=== PATIENT | female | born 1955 | race Caucasian/White ===

== ENCOUNTER 2020-03-13 05:29 | Emergency (ER) | payer MEDICARE, OTHER ==
[2020-03-13 05:45] VITALS: BP_SYST 163; BP_SYST 164; BP_SYST 165; BP_DIAS 79; BP_DIAS 87; BP_DIAS 90
[2020-03-13] MEDS ORDERED: MECLIZINE 25 MG (ANTIVERT) TAB PO STA (05:48)
[2020-03-13] MEDS ORDERED: ONDANSETRON 4 MG/2 ML (SDV) Z0FRAN IVP STA ×2 (05:48→06:38)
[2020-03-13] MEDS ORDERED: NS IV 1000 ML 1,000 ML IV STA (05:48)
[2020-03-13 05:50] LABS: BASOPHILS % (AUTO) 0 % (0-10); EOSINOPHILS % (AUTO) 0 % (0-10); HEMATOCRIT 39 % (35-52); LYMPHOCYTES # (AUTO) 1.5 X 10^3 (1.0-4.0); LYMPHOCYTES % (AUTO) 18 % (12-44); MEAN CORPUSCULAR HEMOGLOBIN 30 PG (25-34); MEAN CORPUSCULAR HGB CONC 33 G/DL (32-36); MEAN CORPUSCULAR VOLUME 90 FL (80-99); MEAN PLATELET VOLUME 10.4 FL (7.4-10.4); MONOCYTES # (AUTO) 0.3 X 10^3 (0.0-1.0); MONOCYTES % (AUTO) 3 % (0-12); NEUTROPHILS # (AUTO) 6.5 X 10^3 (1.8-7.8); NEUTROPHILS % (AUTO) 78 % (42-75); PLATELET COUNT 254 10^3/uL (130-400); WHITE BLOOD COUNT 8.3 10^3/uL (4.3-11.0)
--- NOTE | 2020-03-13 05:55 | ED General ---
General Chief Complaint: General Problems/Pain Stated Complaint: CHEST PAIN Source of Information: Patient, EMS History of Present Illness Date Seen by Provider: Mar 13, 2020 Time Seen by Provider: 05:29 Initial Comments 64 yo female presenting to the ED by EMS after having n/v/d and dizziness with subjective fever and chills since last night around 2200. She reports her symptoms started with dizziness then the n/v/d and subjective fever and chills followed. She had to sleep upright in a chair because if she tried to lay back in bed she had more severe nausea and vomiting. She woke up this am around 230 with right sided jaw pain and pain in center of chest. She checked her blood pressure at home and it was 180/100 so she took 4 baby aspirin with a cracker. She was worried that she would have a stroke with her blood pressure up and wanted the aspirin to thin her blood. She has been checking her pressure over the last few months because it has been fluctuating and increasing, especially at night. She just had Medicare start on March 11 and was assigned to a Dr. Carrillo here in [facility]. She reports that she takes some vitamins but no prescription medicine. She had an allergic reaction to prednisone eye drops otherwise no allergies that she knows of to cause problems from medicines. This morning she called EMS around 5 am to be evaluated because she was worried she might be having a stroke due to pressure and feeling weak all over. She has not had any exposure to anyone that is sick or having similar symptoms with n/v/d. She has had vertigo in the past and it has caused her to have n/v but usually improved after she would vomit and this persisted all night. Allergies and Home Medications Allergies Coded Allergies: prednisone (Verified Allergy, Unknown, 03/13/20) reaction to eye drops Home Medications Meclizine HCl 25 Mg Tablet, 25 MG PO Q6H PRN for DIZZINESS Prescribed by: HARRY MAGANA on 03/13/20 0644 Patient Home Medication List Home Medication List Reviewed: Yes Review of Systems Review of Systems Constitutional: chills, dizziness (with laying back, changing positions ), fever (subjective), weakness (general) EENTM: ear pain (pressure in ears); No epistaxis, No nose congestion Respiratory: No cough, No short of breath Cardiovascular: see HPI, chest pain (pain in center of chest and right jaw earlier this am) Gastrointestinal: see HPI; No abdominal pain; diarrhea; No melena; nausea, vomiting Genitourinary: no symptoms reported Musculoskeletal: no symptoms reported Skin: no symptoms reported; No rash Psychiatric/Neurological: Denies Headache, Denies Numbness, Denies Paresthesia; Weakness (general) Past Nzvmjsz-Jtqigp-Tradfi Hx Past Med/Social Hx: Reviewed Nursing Past Med/Soc Hx Patient Social History Alcohol Use: Denies Use Recreational Drug Use: No Smoking Status: Never a Smoker Recent Foreign Travel: No Contact w/Someone Who Travel: No Past Medical History Surgeries: No Respiratory: No Cardiac: Yes Hypertension (labile hypertension) Neurological: No Reproductive Disorders: No Genitourinary: No Musculoskeletal: No Endocrine: No HEENT: No Cancer: No Did You Recieve Any Treatments: No Psychosocial: No Integumentary: No Physical Exam Vital Signs Vital Signs - First Documented 03/13/20 05:35 Temp 36.5 Pulse 87 Resp 18 B/P (MAP) 191/90 (123) Pulse Ox 99 O2 Delivery Room Air Capillary Refill : Height, Weight, BMI Height: '" Weight: lbs. oz. kg; BMI Method: General Appearance: No Apparent Distress, WD/WN HEENT: PERRL/EOMI, Moist Mucous Membranes, TM Abnormal (L) (clear TM with small amount of clear effusion present in middle ear. No erythema or dullness noted.), TM Abnormal (R) (dullness without erythema to TM) Neck: Full Range of Motion, Normal Inspection, Non Tender, Supple Respiratory: Chest Non Tender, Lungs Clear, Normal Breath Sounds, No Accessory Muscle Use, No Respiratory Distress Cardiovascular: Regular Rate, Rhythm, No JVD, No Murmur, Normal Peripheral Pulses Gastrointestinal: Normal Bowel Sounds, No Pulsatile Mass, Non Tender, Soft Rectal: Deferred Extremity: Normal Capillary Refill, Normal Inspection, No Pedal Edema Neurologic/Psychiatric: Alert, Oriented x3, Normal Mood/Affect, media librarian II-XII Norm as Tested Skin: Normal Color, Warm/Dry Progress/Results/Core Measures Suspected Sepsis SIRS Temperature: Pulse: Respiratory Rate: Laboratory Tests 03/13/20 05:41: White Blood Count 8.3 Blood Pressure / Mean: Laboratory Tests 03/13/20 05:41: Creatinine 0.78, INR Comment 1.0, Platelet Count 254, Total Bilirubin 0.6 Results/Orders Lab Results Laboratory Tests Test 03/13/20 05:41 03/13/20 05:50 Range/Units White Blood Count 8.3 4.3-11.0 10^3/uL Red Blood Count 4.33 L 4.35-5.85 10^6/uL Hemoglobin 13.0 11.5-16.0 G/DL Hematocrit 39 35-52 % Mean Corpuscular Volume 90 80-99 FL Mean Corpuscular Hemoglobin 30 25-34 PG Mean Corpuscular Hemoglobin Concent 33 32-36 G/DL Red Cell Distribution Width 12.5 10.0-14.5 % Platelet Count 254 130-400 10^3/uL Mean Platelet Volume 10.4 7.4-10.4 FL Immature Granulocyte % (Auto) 0 % Neutrophils (%) (Auto) 78 H 42-75 % Lymphocytes (%) (Auto) 18 12-44 % Monocytes (%) (Auto) 3 0-12 % Eosinophils (%) (Auto) 0 0-10 % Basophils (%) (Auto) 0 0-10 % Neutrophils # (Auto) 6.5 1.8-7.8 X 10^3 Lymphocytes # (Auto) 1.5 1.0-4.0 X 10^3 Monocytes # (Auto) 0.3 0.0-1.0 X 10^3 Eosinophils # (Auto) 0.0 0.0-0.3 10^3/uL Basophils # (Auto) 0.0 0.0-0.1 10^3/uL Immature Granulocyte # (Auto) 0.0 0.0-0.1 10^3/uL Prothrombin Time 13.1 12.2-14.7 SEC INR Comment 1.0 0.8-1.4 Activated Partial Thromboplast Time 31 24-35 SEC Sodium Level 136 135-145 MMOL/L Potassium Level 4.0 3.6-5.0 MMOL/L Chloride Level 101 98-107 MMOL/L Carbon Dioxide Level 24 21-32 MMOL/L Anion Gap 11 5-14 MMOL/L Blood Urea Nitrogen 12 7-18 MG/DL Creatinine 0.78 0.60-1.30 MG/DL Estimat Glomerular Filtration Rate > 60 BUN/Creatinine Ratio 15 Glucose Level 138 H 70-105 MG/DL Calcium Level 9.7 8.5-10.1 MG/DL Corrected Calcium 9.5 8.5-10.1 MG/DL Magnesium Level 2.0 1.6-2.4 MG/DL Total Bilirubin 0.6 0.1-1.0 MG/DL Aspartate Amino Transf (AST/SGOT) 26 5-34 U/L Alanine Aminotransferase (ALT/SGPT) 30 0-55 U/L Alkaline Phosphatase 97 40-136 U/L Troponin I < 0.30 <0.30 NG/ML Pro-B-Type Natriuretic Peptide 81.2 H <75.0 PG/ML Total Protein 7.1 6.4-8.2 GM/DL Albumin 4.3 3.2-4.5 GM/DL Lipase 31 8-78 U/L Urine Color YELLOW Urine Clarity CLEAR Urine pH 7.0 5-9 Urine Specific [place] 1.010 L 1.016-1.022 Urine Protein NEGATIVE NEGATIVE Urine Glucose (UA) NEGATIVE NEGATIVE Urine Ketones NEGATIVE NEGATIVE Urine Nitrite NEGATIVE NEGATIVE Urine Bilirubin NEGATIVE NEGATIVE Urine Urobilinogen 0.2 < = 1.0 MG/DL Urine Leukocyte Esterase NEGATIVE NEGATIVE Urine RBC (Auto) NEGATIVE NEGATIVE Urine RBC NONE /HPF Urine WBC NONE /HPF Urine Squamous Epithelial Cells 5-10 /HPF Urine Crystals NONE /LPF Urine Bacteria NEGATIVE /HPF Urine Casts NONE /LPF Urine Mucus NEGATIVE /LPF Urine Culture Indicated NO My Orders Orders - HARRY MAGANA MD Comprehensive Metabolic Panel (03/13/20 05:44) Lipase (03/13/20 05:44) Ua Culture If Indicated (03/13/20 05:44) Ed Iv/Invasive Line Start (03/13/20 05:44) Cbc With Automated Diff (03/13/20 05:44) Troponin I Fs (03/13/20 05:44) Probnp Fs (03/13/20 05:44) Magnesium (03/13/20 05:44) Orthostatic Vital Signs (Adult (03/13/20 05:44) Ekg Tracing (03/13/20 05:44) Monitor-Rhythm Ecg Trace Only (03/13/20 05:44) Protime With Inr (03/13/20 05:48) Partial Thromboplastin Time (03/13/20 05:48) Ns Iv 1000 Ml (Sodium Chloride 0.9%) (03/13/20 05:48) Ondansetron Injection (Zofran Injectio (1/3/21 05:48) Meclizine Tablet (Antivert Tablet) (03/13/20 05:48) Chest 1 View Ap/Pa Only (03/13/20 05:49) Ondansetron Injection (Zofran Injectio (03/13/20 06:38) Vital Signs/I&O 03/13/20 03/13/20 03/13/20 05:35 05:45 06:42 Temp 36.5 Pulse 87 76 68 88 84 Resp 18 16 B/P (MAP) 191/90 (123) 164/79 (107) 136/63 163/90 (114) 165/87 (113) Pulse Ox 99 99 O2 Delivery Room Air Room Air Capillary Refill : Progress Note #1: Progress Note check labs, ECG, CXR, cardiac enzymes as well as lipase and general electrolytes with liver and renal function. Progress Note #2: Time: 06:19 Progress Note CBC without elevation of WBC count. Chemistry with mild elevation of glucose to 138. No elevation of Troponin and BNP 81. Coags normal. No infection, glucose, protein on UA and specific gravity 1.010. Pt did not have significant change in her orthostatic vitals but she did feel dizzy with changing positions. She refused the Zofran feeling that the nausea was only when she tried to lay down. She took IVF and Meclizine. Considering that her symptom of chest pain and right jaw pain woke her up around 230 am and she has no elevation now of her levels this would be over 4 hours since onset of symptoms. Discharge to home on Meclizine. Advised pt there is a chance for Covid causing her symptoms and she could get a Rapid test with the urgent care if she was having worsening symptoms or more concern or we could do one before she leaves. She states she was exposed to family members that have Covid but felt that she stayed away from them distance [place] and it was 5-7 days before they were diagnosed and was about 10 days ago. Encouraged to establish care with Dr. Carrillo and have further testing there. If not improving or worsening then return or seek medical care for further testing. ECG Initial ECG Impression Date: Mar 13, 2020 Initial ECG Impression Time: 05:43 Initial ECG Rate: 72 Initial ECG Rhythm: Normal Sinus Initial ECG Comparisson: No Previous ECG Available Comment Sinus rhythm with rate of 72 bpm. VA interval of 228 ms with prolonged VA interval. QT interval of 410 ms and QTc interval of [address] elevation. No prior tracing available for comparison. Diagnostic Imaging Diagonstic Imaging: Xray Plain Films/CT/US/NM/MRI: chest Comments On my review of her 1 view CXR she has no acute infiltrate, no cardiomegaly, no effusion. Reviewed: Reviewed by Me Departure Impression Primary Impression: Vertigo Additional Impressions: Nausea vomiting and diarrhea Labile hypertension Disposition: HOME, SELF-CARE Condition: Stable Departure-Patient Inst. Decision time for Depature: 06:39 Referrals: NO,LOCAL PHYSICIAN (PCP) Primary Care Physician DELILAH CARRILLO MD Patient Instructions: Nausea and Vomiting, Adult ED, Dizziness, Adult ED, Diarr hea, Adult ED, Vertigo (a Type of Dizziness) (DC), High Blood Pressure (DC), DASH Diet Add. Discharge Instructions: Stay well hydrated and try to make sure you are getting plenty of fluids Try taking Meclizine (Antivert) for dizziness and nausea. This would be 25 mg every 6-8 hours as needed for your dizziness and nausea. Follow up with your new provider, Dr. Carrillo, to establish care and see how they want to help manage your blood pressure and any risk stratification testing with your family history of heart disease and strokes. If your symptoms worsen, fever over 101 F, or have abdominal pain and uncontro lled nausea or vomiting then return or seek medical care for further testing All discharge instructions reviewed with patient and/or family. Voiced understanding. Scripts Meclizine HCl (Meclizine HCl) 25 Mg Tablet 25 MG PO Q6H PRN for DIZZINESS for 7 Days, #30 TAB 0 Refills Prov: HARRY MAGANA MD 03/13/20 HARRY MAGANA MD Mar 13, 2020 05:55
[2020-03-13 06:01] LABS: BACTERIA,URINE NEGATIVE /HPF; BILIRUBIN,URINE NEGATIVE (NEGATIVE); CLARITY,URINE CLEAR; COLOR,URINE YELLOW; GLUCOSE, URINE (UA) NEGATIVE (NEGATIVE); KETONES,URINE NEGATIVE (NEGATIVE); LEUKOCYTE ESTERASE ,URINE NEGATIVE (NEGATIVE); NITRITE,URINE NEGATIVE (NEGATIVE); PROTEIN,URINE NEGATIVE (NEGATIVE)
[2020-03-13 06:08] LABS: BUN/CREATININE RATIO 15; CALCIUM 9.7 MG/DL (8.5-10.1); CARBON DIOXIDE 24 MMOL/L (21-32); CHLORIDE 101 MMOL/L (98-107); CREATININE SERUM 0.78 MG/DL (0.60-1.30); GFR ESTIMATED > 60; GLUCOSE 138 MG/DL (70-105); PROTHROMBIN TIME PATIENT 13.1 SEC (12.2-14.7); SODIUM 136 MMOL/L (135-145)
[2020-03-13 06:09] LABS: ALANINE AMINOTRANSFERASE 30 U/L (0-55); ALBUMIN 4.3 GM/DL (3.2-4.5); ALKALINE PHOSPHATASE 97 U/L (40-136); BILIRUBIN,TOTAL 0.6 MG/DL (0.1-1.0); LIPASE 31 U/L (8-78); TOTAL PROTEIN 7.1 GM/DL (6.4-8.2)
[2020-03-13 06:42] VITALS: BP 136/63
[2020-03-13] MEDS ORDERED: MECL-149 PO (06:44)
--- NOTE | 2020-03-13 07:52 | Diagnostic Imaging Report ---
INDICATION: Chest pain COMPARISON: None available TECHNIQUE: Single radiograph of the chest dated 03/13/2020 FINDINGS: The cardiac silhouette is within normal limits in size. No significant pulmonary vascular congestion. The lungs are clear. Mild elevation of the right hemidiaphragm. No pleural effusion. Biapical pleural parenchymal scarring. No pneumothorax. No acute osseous abnormality. IMPRESSION: No acute cardiopulmonary abnormality. Dictated by: Dictated on workstation # [id number]
== END 2020-03-13 06:47 | disposition home or self-care (01) ==
LOC: ER FS 05:36
DX: R42 Dizziness and giddiness (principal); R11.2 Nausea with vomiting, unspecified; R19.7 Diarrhea, unspecified; R03.0 Elevated blood-pressure reading, without diagnosis of hypertension; Z88.8 Allergy status to other drugs, medicaments and biological substances
CPT/HCPCS: 36415; 71045; 80053; 81000; 83690; 83735; 83880; 84484; 85025; 85610; 85730; 93005; 93041

== ENCOUNTER 2020-12-22 17:37 | Emergency (ER) | payer MEDICARE ==
[~2020-12-22] VITALS: Ht 163 cm; Wt 82.0 kg
[~2020-12-22 17:37] MED LIST: MECL-149 PO
[2020-12-22] MEDS ORDERED: TETANUS,DIPTH,PERTUSS P/F (BOOSTRIX) 0.5 ML VIAL IM ONE (18:00)
[2020-12-22] MEDS ORDERED: LIDOCAINE 1% INJ 20 ML 20 ML VIAL INJ ONE (18:00)
--- NOTE | 2020-12-22 18:00 | ED General ---
General Chief Complaint: Laceration Stated Complaint: CUT ON CHEEK Source of Information: Patient Exam Limitations: No Limitations History of Present Illness Date Seen by Provider: Dec 22, 2020 Time Seen by Provider: 17:57 Initial Comments Patient is a 65-year-old female presents ED with a laceration to her left cheek. Around 1130 this morning she was weed eating grass when she felt a sharp object hit below her left eye. This resulted in laceration. She cleaned out the area with normal saline and hydroperoxide. She states bleeding has been controlled. She used a Band-Aid over the area. She is concerned that there may be a foreign body in her cheek. She reports very minimal pain. Last tetanus shot 7 to 10 years ago. She denies of any headache, visual changes, neck pain, fever, cough, chest pain Allergies and Home Medications Allergies Coded Allergies: prednisone (Verified Allergy, Unknown, 03/13/20) reaction to eye drops Patient Home Medication List Home Medication List Reviewed: Yes Meclizine HCl (Meclizine HCl) 25 Mg Tablet, 25 MG PO Q6H PRN for DIZZINESS Prescribed by: HARRY MAGANA on 03/13/20 0644 Review of Systems Review of Systems Constitutional: No no symptoms reported EENTM: see HPI, no symptoms reported Respiratory: see HPI Gastrointestinal: no symptoms reported, see HPI Skin: other (Laceration to left) All Other Systems Reviewed Negative Unless Noted: Yes Past [id number]-Jctaed-Ietbth Hx Past Medical History Surgeries: No Respiratory: No Cardiac: Yes Hypertension Neurological: No Reproductive Disorders: No Genitourinary: No Gastrointestinal: No Musculoskeletal: No Endocrine: No HEENT: No Cancer: No Did You Recieve Any Treatments: No Psychosocial: No Integumentary: No Blood Disorders: No Physical Exam Vital Signs Vital Signs - First Documented 12/22/20 17:46 Temp 36.4 Pulse 84 Resp 18 B/P (MAP) 117/74 (88) Pulse Ox 98 O2 Delivery Room Air Capillary Refill : Height, Weight, BMI Height: '" Weight: lbs. oz. kg; BMI Method: General Appearance: No Apparent Distress, WD/WN Eyes: Bilateral Eye Normal Inspection, Bilateral Eye PERRL, Bilateral Eye EOMI HEENT: PERRL/EOMI, TMs Normal, Normal ENT Inspection Neck: Full Range of Motion, Normal Inspection, Non Tender Respiratory: Chest Non Tender, Lungs Clear, Normal Breath Sounds Cardiovascular: Regular Rate, Rhythm, No Edema, No Gallop Gastrointestinal: Normal Bowel Sounds, No Organomegaly Back: Normal Inspection, No CVA Tenderness, No Vertebral Tenderness Skin: Other (2 cm laceration superficial to the left cheek. Possible foreign body noted.) Procedures/Interventions Wound Location: Face Wound Length (cm): 2 Wound's Depth, Shape: superficial Wound Explored: foreign body removed Irrigated w/ Saline (ccs): 100 Betadine Prep?: Yes Anesthesia: 1% Lidocaine Volume Anesthetic (ccs): 2 Suture: Prolene Suture Size: 6-0 Number of Sutures: 3 Layer Closure?: 1 Progress/Results/Core Measures Suspected Sepsis SIRS Temperature: Pulse: Respiratory Rate: Blood Pressure / Mean: Results/Orders My Orders Orders - SIMONE NELSON Lidocaine 1% Inj 20 Ml (Xylocaine 1% Inj (12/22/20 18:00) Dipht,Pertuss(Acell),Tet Adult (Boostrix (12/22/20 18:00) Vital Signs/I&O 12/22/20 17:46 Temp 36.4 Pulse 84 Resp 18 B/P (MAP) 117/74 (88) Pulse Ox 98 O2 Delivery Room Air Capillary Refill : Departure Communication (Admissions) Patient presents ED with a laceration to left cheek. Foreign body was removed which was a piece of glass. Was given a Tdap booster here in the ED. 3 sutures were placed. Remove in 6 days. Discussed Neosporin. Wound appears to be clean. This was a superficial laceration that needed sutures. If any worsening symptoms such as redness, swelling strongly recommend return back to ED or follow-up with her PCP. Return precautions were discussed with patient. Very minimal pain. Impression Primary Impression: Laceration Disposition: 01 HOME, SELF-CARE Condition: Improved Departure-Patient Inst. Decision time for Depature: 18:25 Referrals: NO,LOCAL PHYSICIAN (PCP/Family) Primary Care Physician Patient Instructions: Laceration Repair With Stitches ED Add. Discharge Instructions: Remove sutures in 6 to 7 days . Recommend Neosporin. If any worsening symptoms such as redness, swelling to return back to ED. All discharge instructions reviewed with patient and/or family. Voiced und erstanding. SIMONE NELSON Dec 22, 2020 18:00
[2020-12-22 18:47] VITALS: BP 129/79
== END 2020-12-22 18:32 | disposition home or self-care (01) ==
LOC: EDUNIT# 17:37 → ER 17:40
DX: S01.412A Laceration without foreign body of left cheek and temporomandibular area, initial encounter (principal); I10 Essential (primary) hypertension; Z23 Encounter for immunization; W26.8XXA Contact with other sharp object(s), not elsewhere classified, initial encounter
CPT/HCPCS: 12011; 90715

== ENCOUNTER 2020-12-28 11:19 | Emergency (ER) | payer MEDICARE ==
[~2020-12-28] VITALS: Ht 162 cm; Wt 85.0 kg
[2020-12-28 11:36] VITALS: BP 154/80
== END 2020-12-28 11:38 | disposition home or self-care (01) ==
LOC: EDUNIT# 11:19 → ER FS 11:21
DX: Z48.02 Encounter for removal of sutures (principal)